=== PATIENT | female | born 1935 | race Caucasian/White ===

== ENCOUNTER 2017-08-10 15:21 | Emergency (ER) | payer OTHER ==
[~2017-08-10] VITALS: Ht 139.7 cm; Wt 77.0 kg
[~2017-08-10 15:21] MED LIST: AMLODIPINE BESY10 MG PO; LEVEMIR FL100 UNITS/ SC; LOSARTAN-HCTZ1 EAC2 PO; METFORMIN HCL1000 MG PO; NAPROSYN500 MG PO; OMEPRAZOLE40 M1 PO; RANITIDINE HCL150 MG PO
[2017-08-10 17:17] LABS: EOSINOPHIL (%) 3.7 % (0-5); EOSINOPHIL COUNT 0.3 K/uL (0-0.3); HEMATOCRIT 34.7 % (36.0-46.0); IMMATURE GRANULOCYTE (%) 0.1 % (0.0-0.7); INSTRUMENT ABS NEUTROPHIL CT 4.4 K/uL; LYMPHOCYTE COUNT 1.5 K/uL (1.0-2.8); MCH 29.4 PG (29.0-34.0); MCHC 32.6 G/DL (30.0-36.0); MCV 90.4 FL (83-99); MEAN PLAT.VOLUME 8.7 uM^3 (9.5-12.4); MONOCYTE (%) 9.6 % (3-12); MONOCYTE COUNT 0.7 K/uL (0-0.8); NEUTROPHIL (%) 64.5 % (45-76); NEUTROPHIL COUNT 4.4 K/uL (1.8-6.4); PLATELET COUNT 192 K/uL (156-360); RBC DIS.WIDTH-CV 13.2 % (11.8-14.6); RBC DIS.WIDTH-SD 43.6 % (39-53); RED BLOOD COUNT 3.84 M/uL (3.80-5.20); WHITE BLOOD COUNT 6.8 K/uL (4.1-10.2)
[2017-08-10 17:27] LABS: CHLORIDE 104 mEq/L (99-109); POTASSIUM 4.1 mEq/L (3.7-5.4); SODIUM 140 mEq/L (136-147)
[2017-08-10 17:28] LABS: MAGNESIUM 1.4 mg/dL (1.3-2.7)
[2017-08-10 17:29] LABS: GLUCOSE 90 mg/dL (70-99)
[2017-08-10 17:30] LABS: ANION GAP 13 MEQ/L (2-14)
[2017-08-10 17:33] LABS: GFR ESTIMATE (CALCULATED) 56 mL/min/
[2017-08-10 17:34] LABS: UREA NITROGEN (BUN) 21 mg/dL (9-23)
[2017-08-10 17:39] LABS: TROP-I INTERPRETATION NEGATIVE; TROPONIN-I < 0.01 ng/mL (0.0-0.30)
[2017-08-10 18:14] LABS: TOTAL BILIRUBIN 0.6 mg/dL (0.0-1.0)
[2017-08-10 18:15] LABS: ALKALINE PHOSPHATASE 66 IU/L (3-129)
[2017-08-10 18:18] LABS: DIRECT BILIRUBIN 0.3 mg/dL (0.0-0.3)
[2017-08-10] MEDS ORDERED: PERCOCET 5/31 TABLET PO (20:14)
[2017-08-10 20:30] VITALS: BP 157/107
== END 2017-08-10 20:30 | disposition home or self-care (01) ==
LOC: EME 15:21
PROVIDERS: Emergency Medicine
DX: R60.9 Edema, unspecified (principal); M25.561 Pain in right knee; C64.9 Malignant neoplasm of unspecified kidney, except renal pelvis; E11.9 Type 2 diabetes mellitus without complications; E78.5 Hyperlipidemia, unspecified; I10 Essential (primary) hypertension; K21.9 Gastro-esophageal reflux disease without esophagitis; Z87.891 Personal history of nicotine dependence; Z79.84 Long term (current) use of oral hypoglycemic drugs; Z79.4 Long term (current) use of insulin
CPT/HCPCS: 71010; 73564; 80048; 80076; 83735; 83880; 84100; 84484; 85025; 99281; 99285

== ENCOUNTER 2018-03-09 20:58 | Emergency (ER) | payer OTHER ==
[~2018-03-09] VITALS: Ht 147.3 cm; Wt 80.0 kg
[~2018-03-09 20:58] MED LIST changes: +LEVEMIR FL100 UNIT/1 SC; -LEVEMIR FL100 UNITS/ SC; -METFORMIN HCL1000 MG PO; +METFORMIN HCL500 MG PO; +PERCOCET 5/31 TABLET PO
[2018-03-09 23:16] VITALS: BP 128/71
[2018-03-10] MEDS ORDERED: OXYMORPHONE HCL10 M1 PO (18:05)
[2018-03-10] MEDS ORDERED: IRBESARTAN300 MG PO (18:05)
[2018-03-10] MEDS ORDERED: PRAVASTATIN SOD80 MG PO (18:05)
[2018-03-10] MEDS ORDERED: ANASTROZOLE1 MG PO (18:05)
[2018-03-10] MEDS ORDERED: HYDROCHLOROTHIA25 MG PO (18:05)
[2018-03-10] MEDS ORDERED: PANTOPRAZOLE SO40 MG PO (18:06)
[2018-03-10] MEDS ORDERED: OXYCODONE HCL5 MG PO (18:07)
[2018-03-10] MEDS ORDERED: KENALOG,ARISTOC80 GM TP (18:07)
[2018-03-10] MEDS ORDERED: ELIQUIS5 MG PO (18:25)
== END 2018-03-09 23:16 | disposition home or self-care (01) ==
LOC: EME 20:58
PROC: 3E0U3BZ Introduction of Anesthetic Agent into Joints, Percutaneous Approach (ICD-10-PCS; principal; 2018-03-09)
DX: S42.292A Other displaced fracture of upper end of left humerus, initial encounter for closed fracture (principal); W01.0XXA Fall on same level from slipping, tripping and stumbling without subsequent striking against object, initial encounter; I10 Essential (primary) hypertension; E11.9 Type 2 diabetes mellitus without complications; Z79.4 Long term (current) use of insulin; Z79.84 Long term (current) use of oral hypoglycemic drugs; E78.5 Hyperlipidemia, unspecified; K21.9 Gastro-esophageal reflux disease without esophagitis; Z87.891 Personal history of nicotine dependence; Z90.11 Acquired absence of right breast and nipple; Z85.3 Personal history of malignant neoplasm of breast; Z90.710 Acquired absence of both cervix and uterus; Z88.0 Allergy status to penicillin
CPT/HCPCS: 73030; 99281; 99284; S0020

== ENCOUNTER 2018-03-10 14:08 | Inpatient (IN) | payer OTHER ==
[~2018-03-10] VITALS: Ht 147.3 cm; Wt 82.2 kg
[2018-03-10 15:14] LABS: BASOPHIL (%) 0.3 % (0-1); EOSINOPHIL (%) 0.3 % (0-5); HEMATOCRIT 31.3 % (36.0-46.0); HEMOGLOBIN 10.3 G/DL (11.9-15.5); IMMATURE GRANULOCYTE (%) 0.3 % (0.0-0.7); LYMPHOCYTE (%) 12.4 % (15-42); LYMPHOCYTE COUNT 1.1 K/uL (1.0-2.8); MCHC 32.9 G/DL (30.0-36.0); MCV 88.2 FL (83-99); MONOCYTE (%) 9.3 % (3-12); MONOCYTE COUNT 0.9 K/uL (0-0.8); NEUTROPHIL (%) 77.4 % (45-76); NEUTROPHIL COUNT 7.1 K/uL (1.8-6.4); PLATELET COUNT 215 K/uL (156-360); RBC DIS.WIDTH-CV 13.4 % (11.8-14.6); RBC DIS.WIDTH-SD 43.7 % (39-53); RED BLOOD COUNT 3.55 M/uL (3.80-5.20); WHITE BLOOD COUNT 9.2 K/uL (4.1-10.2)
[2018-03-10 15:27] LABS: CHLORIDE 101 mEq/L (99-109); POTASSIUM 4.6 mEq/L (3.7-5.4); SODIUM 135 mEq/L (136-147)
[2018-03-10 15:29] LABS: GLUCOSE 176 mg/dL (70-99)
[2018-03-10 15:33] LABS: CREATININE 0.9 mg/dL (0.6-1.3); GFR ESTIMATE (CALCULATED) > 59 mL/min/
[2018-03-10 15:34] LABS: UREA NITROGEN (BUN) 23 mg/dL (9-23)
[2018-03-10 15:58] LABS: APPEARANCE SL.HAZY ((CLEAR)); BILIRUBIN NEGATIVE; BLOOD NEGATIVE; COLOR YELLOW ((YELLOW)); GLUCOSE (STRIP) NEGATIVE; KETONES 5; LEUKOCYTES LARGE; NITRITE NEGATIVE; PROTEIN (STRIP) NEGATIVE; SPECIFIC GRAVITY 1.015 (1.000-1.030); UROBILINOGEN 0.2 MG/DL (0.2-1.0)
[2018-03-10 16:09] LABS: BACTERIA RARE /HPF; EPITHELIAL CELLS 1+ /HPF; MUCUS TRACE /LPF; UCUL ADDED? YES
[2018-03-10] MEDS ORDERED: OXYMORPHONE HCL10 M1 PO (18:05)
[2018-03-10] MEDS ORDERED: HYDROCHLOROTHIA25 MG PO (18:05)
[2018-03-10] MEDS ORDERED: PRAVASTATIN SOD80 MG PO (18:05)
[2018-03-10] MEDS ORDERED: ANASTROZOLE1 MG PO (18:05)
[2018-03-10] MEDS ORDERED: IRBESARTAN300 MG PO (18:05)
[2018-03-10] MEDS ORDERED: PANTOPRAZOLE SO40 MG PO (18:06)
[2018-03-10] MEDS ORDERED: OXYCODONE HCL5 MG PO (18:07)
[2018-03-10] MEDS ORDERED: KENALOG,ARISTOC80 GM TP (18:07)
[2018-03-10] MEDS ORDERED: ELIQUIS5 MG PO (18:25)
[2018-03-10 20:29] VITALS: BP 165/74
[2018-03-10 22:37] VITALS: BP 147/67
[2018-03-11 03:47] VITALS: BP 147/67
[2018-03-11 06:12] LABS: HEMATOCRIT 29.3 % (36.0-46.0); HEMOGLOBIN 9.5 G/DL (11.9-15.5); MCH 28.5 PG (29.0-34.0); MCHC 32.4 G/DL (30.0-36.0); PLATELET COUNT 213 K/uL (156-360); RBC DIS.WIDTH-CV 13.5 % (11.8-14.6); RBC DIS.WIDTH-SD 43.5 % (39-53); RED BLOOD COUNT 3.33 M/uL (3.80-5.20); WHITE BLOOD COUNT 7.9 K/uL (4.1-10.2)
[2018-03-11 06:37] LABS: CHLORIDE 105 MEQ/L (99-109); CREATININE 0.7 MG/DL (0.6-1.3); GFR ESTIMATE (CALCULATED) > 59 mL/min/; POTASSIUM 4.3 MEQ/L (3.7-5.4); SODIUM 139 MEQ/L (136-147); UREA NITROGEN (BUN) 13 mg/dL (9-23)
[2018-03-11 06:48] LABS: GLUCOSE 102 mg/dL (70-99)
[2018-03-11 08:20] VITALS: BP 128/83
[2018-03-11 17:26] VITALS: BP 130/64
[2018-03-12 00:50] VITALS: BP 118/56
[2018-03-12 07:56] VITALS: BP 139/59
[2018-03-12 11:15] VITALS: BP 135/64
[2018-03-12 15:48] VITALS: BP 115/59
[2018-03-12 20:06] VITALS: BP 129/63
[2018-03-12 23:29] VITALS: BP 139/64
[2018-03-13 04:13] VITALS: BP 132/70
[2018-03-13 08:12] VITALS: BP 110/51
[2018-03-13 15:18] VITALS: BP 116/58
[2018-03-13 19:18] LABS: HEMATOCRIT 27.2 % (36.0-46.0); HEMOGLOBIN 8.8 G/DL (11.9-15.5); MCV 89.5 FL (83-99)
[2018-03-13 20:00] VITALS: BP 112/55
[2018-03-13 23:25] VITALS: BP 147/68
[2018-03-14 03:25] VITALS: BP 137/72
[2018-03-14 06:07] LABS: HEMATOCRIT 24.7 % (36.0-46.0); HEMOGLOBIN 8.2 G/DL (11.9-15.5); MCH 29.2 PG (29.0-34.0); MCHC 33.2 G/DL (30.0-36.0); MCV 87.9 FL (83-99); PLATELET COUNT 215 K/uL (156-360); RBC DIS.WIDTH-CV 13.3 % (11.8-14.6); RBC DIS.WIDTH-SD 42.2 % (39-53); RED BLOOD COUNT 2.81 M/uL (3.80-5.20); WHITE BLOOD COUNT 9.9 K/uL (4.1-10.2)
[2018-03-14 06:40] LABS: CHLORIDE 100 MEQ/L (99-109); CREATININE 0.7 MG/DL (0.6-1.3); GFR ESTIMATE (CALCULATED) > 59 mL/min/; GLUCOSE 217 mg/dL (70-99); POTASSIUM 4.2 MEQ/L (3.7-5.4); SODIUM 136 MEQ/L (136-147); UREA NITROGEN (BUN) 17 mg/dL (9-23)
[2018-03-14 08:28] VITALS: BP 143/71
[2018-03-14 17:08] VITALS: BP 119/59
[2018-03-14 20:10] VITALS: BP 129/59
[2018-03-14 23:51] VITALS: BP 140/61
[2018-03-15 06:44] LABS: HEMATOCRIT 24.4 % (36.0-46.0); HEMOGLOBIN 8.1 G/DL (11.9-15.5); MCH 29.3 PG (29.0-34.0); MCHC 33.2 G/DL (30.0-36.0); MCV 88.4 FL (83-99); NRBC (%) 0.2 /100 WBC (0-0); PLATELET COUNT 240 K/uL (156-360); RBC DIS.WIDTH-CV 13.6 % (11.8-14.6); RBC DIS.WIDTH-SD 43.9 % (39-53); RED BLOOD COUNT 2.76 M/uL (3.80-5.20); WHITE BLOOD COUNT 9.4 K/uL (4.1-10.2)
[2018-03-15 07:12] LABS: CHLORIDE 96 MEQ/L (99-109); CREATININE 0.7 MG/DL (0.6-1.3); GFR ESTIMATE (CALCULATED) > 59 mL/min/; GLUCOSE 146 mg/dL (70-99); POTASSIUM 4.4 MEQ/L (3.7-5.4); SODIUM 133 MEQ/L (136-147); UREA NITROGEN (BUN) 19 mg/dL (9-23)
[2018-03-15 08:05] VITALS: BP 125/69
[2018-03-15 09:41] LABS: ALKALINE PHOSPHATASE 45 IU/L (3-129); ALT (GPT) 6 IU/L (3-49); AST (GOT) 14 IU/L (2-34); DIRECT BILIRUBIN 0.2 mg/dL (0.0-0.3); TOTAL BILIRUBIN 0.8 MG/DL (0.0-1.0); TOTAL PROTEIN 5.5 G/DL (6.4-8.3)
[2018-03-15 15:24] VITALS: BP 136/61
[2018-03-16 00:09] VITALS: BP 131/65
[2018-03-16 06:02] LABS: HEMATOCRIT 24.1 % (36.0-46.0); HEMOGLOBIN 7.9 G/DL (11.9-15.5); MCH 29.2 PG (29.0-34.0); MCHC 32.8 G/DL (30.0-36.0); MCV 88.9 FL (83-99); PLATELET COUNT 269 K/uL (156-360); RBC DIS.WIDTH-CV 13.5 % (11.8-14.6); RBC DIS.WIDTH-SD 43.5 % (39-53); RED BLOOD COUNT 2.71 M/uL (3.80-5.20); WHITE BLOOD COUNT 9.1 K/uL (4.1-10.2)
[2018-03-16 06:28] LABS: CHLORIDE 97 MEQ/L (99-109); CREATININE 0.7 MG/DL (0.6-1.3); GFR ESTIMATE (CALCULATED) > 59 mL/min/; GLUCOSE 131 mg/dL (70-99); POTASSIUM 4.4 MEQ/L (3.7-5.4); SODIUM 136 MEQ/L (136-147); UREA NITROGEN (BUN) 22 mg/dL (9-23)
[2018-03-16 08:10] VITALS: BP 154/70
[2018-03-16 12:51] VITALS: BP 111/58
[2018-03-16 17:23] VITALS: BP 138/65
[2018-03-17] VITALS (8 sets, daily range): BP systolic 101–145; BP diastolic 48–67
[2018-03-17 05:09] LABS: HEMATOCRIT 23.4 % (36.0-46.0); HEMOGLOBIN 7.6 G/DL (11.9-15.5)
[2018-03-18 00:06] VITALS: BP 135/64
[2018-03-18 08:02] VITALS: BP 161/74
[2018-03-18 08:17] LABS: MCV 90.6 FL (83-99)
[2018-03-18 09:14] LABS: HEMATOCRIT 28.3 % (36.0-46.0); MCV 89.8 FL (83-99)
[2018-03-18 16:16] VITALS: BP 132/58
[2018-03-19 00:21] VITALS: BP 136/62
[2018-03-19 06:59] LABS: HEMATOCRIT 26.8 % (36.0-46.0); HEMOGLOBIN 8.5 G/DL (11.9-15.5); MCV 90.2 FL (83-99)
[2018-03-19 08:39] VITALS: BP 137/80
[2018-03-19 15:42] VITALS: BP 114/59
[2018-03-19 22:51] LABS: GLUCOSE 379 mg/dL (70-99)
[2018-03-19 23:27] VITALS: BP 127/60
[2018-03-20 06:25] LABS: BASOPHIL (%) 0.8 % (0-1); BASOPHIL COUNT 0.1 K/uL (0-0.1); EOSINOPHIL (%) 2.7 % (0-5); EOSINOPHIL COUNT 0.2 K/uL (0-0.3); HEMATOCRIT 26.6 % (36.0-46.0); HEMOGLOBIN 8.6 G/DL (11.9-15.5); IMMATURE GRANULOCYTE (%) 0.6 % (0.0-0.7); LYMPHOCYTE (%) 21.8 % (15-42); LYMPHOCYTE COUNT 1.4 K/uL (1.0-2.8); MCH 28.8 PG (29.0-34.0); MCHC 32.3 G/DL (30.0-36.0); MONOCYTE (%) 11.4 % (3-12); MONOCYTE COUNT 0.7 K/uL (0-0.8); NEUTROPHIL (%) 62.7 % (45-76); PLATELET COUNT 305 K/uL (156-360); RBC DIS.WIDTH-CV 13.3 % (11.8-14.6); RBC DIS.WIDTH-SD 43.7 % (39-53); RED BLOOD COUNT 2.99 M/uL (3.80-5.20); WHITE BLOOD COUNT 6.3 K/uL (4.1-10.2)
[2018-03-20 07:01] LABS: CHLORIDE 93 MEQ/L (99-109); CREATININE 0.8 MG/DL (0.6-1.3); GFR ESTIMATE (CALCULATED) > 59 mL/min/; POTASSIUM 4.8 MEQ/L (3.7-5.4); SODIUM 133 MEQ/L (136-147); UREA NITROGEN (BUN) 27 mg/dL (9-23)
[2018-03-20 07:04] LABS: GLUCOSE 174 mg/dL (70-99)
[2018-03-20 08:05] VITALS: BP 117/57
[2018-03-20] MEDS ORDERED: POLYETHYLENE GL17 GM PO (10:37)
[2018-03-20] MEDS ORDERED: MYLICON,MYLANTA80 MG PO (10:37)
[2018-03-20] MEDS ORDERED: MIRTAZAPINE15 MG PO (10:37)
[2018-03-20] MEDS ORDERED: DOCUSATE SODIU1 EACH PO (10:38)
[2018-03-20] MEDS ORDERED: MORPHINE SULFAT15 MG PO (10:38)
[2018-03-20] MEDS ORDERED: Tylenol Extra Streng PO (10:38)
[2018-03-20 16:56] VITALS: BP 144/65
== END 2018-03-20 17:13 | DRG 483 ==
LOC: EME → EDBD 14:08 → 3EAST 18:33 → EDOF 18:33 → ENRESERV 18:36 → 4SOUTH 20:16 → ENRESERV 20:44 → 3EAST 22:14
PROVIDERS: Emergency Medicine; Hospitalist; Internal Medicine; Orthopaedic Surgery
PROC: 0RRK00Z Replacement of Left Shoulder Joint with Reverse Ball and Socket Synthetic Substitute, Open Approach (ICD-10-PCS; principal; 2018-03-10)
PROC: 30233N1 Transfusion of Nonautologous Red Blood Cells into Peripheral Vein, Percutaneous Approach (ICD-10-PCS; 2018-03-17)
DX: S42.24 4-part fracture of surgical neck of humerus (principal); R11.2 Nausea with vomiting, unspecified; E11.9 Type 2 diabetes mellitus without complications; I10 Essential (primary) hypertension; C64.2 Malignant neoplasm of left kidney, except renal pelvis; M25.551 Pain in right hip; E66.9 Obesity, unspecified; R09.02 Hypoxemia; J98.11 Atelectasis; E11.51 Type 2 diabetes mellitus with diabetic peripheral angiopathy without gangrene; M25.562 Pain in left knee; S42.242A 4-part fracture of surgical neck of left humerus, initial encounter for closed fracture; I82.431 Acute embolism and thrombosis of right popliteal vein; W18.30XA Fall on same level, unspecified, initial encounter; F43.23 Adjustment disorder with mixed anxiety and depressed mood; T40.2X5A Adverse effect of other opioids, initial encounter; K59.03 Drug induced constipation; M87.9 Osteonecrosis, unspecified; R14.0 Abdominal distension (gaseous); L30.9 Dermatitis, unspecified; G89.29 Other chronic pain; M48.061 Spinal stenosis, lumbar region without neurogenic claudication; M19.90 Unspecified osteoarthritis, unspecified site; Z86.718 Personal history of other venous thrombosis and embolism; Z68.37 Body mass index [BMI] 37.0-37.9, adult; M25.78 Osteophyte, vertebrae; Z79.84 Long term (current) use of oral hypoglycemic drugs; Z90.10 Acquired absence of unspecified breast and nipple; Z88.0 Allergy status to penicillin; Z79.899 Other long term (current) drug therapy; Z85.3 Personal history of malignant neoplasm of breast; Z90.710 Acquired absence of both cervix and uterus; Z79.01 Long term (current) use of anticoagulants
CPT/HCPCS: 71045; 72131; 73020; 73030; 73200; 73502; 73552; 73700; 74018; 80048; 80076; 81003; 82948; 84999; 85014; 85018; 85025; 85027; 85651; 86140; 86850; 86870; 86900; 86901; 86905; 86920; 87040; 87086; 93005; 93970; 94799; 97530 GO; 97530 GP; 99281; 99284; 99285; C1713; C1776; G0378; J0131; J0690; J0744; J1170; J1644; J1815; J2405; J2795; J3010; J3370; J7030; P9016; S0020

== ENCOUNTER 2018-06-14 09:50 | Inpatient (IN) | payer OTHER ==
[~2018-06-14] VITALS: Ht 147.3 cm; Wt 70.8 kg
[~2018-06-14 09:50] MED LIST changes: +ANASTROZOLE1 MG PO; +DOCUSATE SODIU1 EACH PO; +ELIQUIS5 MG PO; +HYDROCHLOROTHIA25 MG PO; +IRBESARTAN300 MG PO; +KENALOG,ARISTOC80 GM TP; +MIRTAZAPINE15 MG PO; +MORPHINE SULFAT15 MG PO; +MYLICON,MYLANTA80 MG PO; +OXYCODONE HCL5 MG PO; +OXYMORPHONE HCL10 M1 PO; +PANTOPRAZOLE SO40 MG PO; +POLYETHYLENE GL17 GM PO; +PRAVASTATIN SOD80 MG PO; +Tylenol Extra Streng PO
[2018-06-14 11:33] LABS: BASOPHIL (%) 0.2 % (0-1); BASOPHIL COUNT 0.1 K/uL (0-0.1); EOSINOPHIL (%) 0 % (0-5); HEMATOCRIT 35.9 % (36.0-46.0); IMMATURE GRANULOCYTE (%) 0.9 % (0.0-0.7); LYMPHOCYTE (%) 3.4 % (15-42); LYMPHOCYTE COUNT 0.8 K/uL (1.0-2.8); MCH 28.4 PG (29.0-34.0); MCHC 33.4 G/DL (30.0-36.0); MCV 85.1 FL (83-99); MONOCYTE (%) 6.2 % (3-12); MONOCYTE COUNT 1.5 K/uL (0-0.8); NEUTROPHIL (%) 89.3 % (45-76); NEUTROPHIL COUNT 21.7 K/uL (1.8-6.4); PLATELET COUNT 234 K/uL (156-360); RBC DIS.WIDTH-CV 14.4 % (11.8-14.6); RED BLOOD COUNT 4.22 M/uL (3.80-5.20); WHITE BLOOD COUNT 24.3 K/uL (4.1-10.2)
[2018-06-14 11:50] LABS: ALBUMIN 4.1 g/dL (3.2-4.8); CHLORIDE 102 mEq/L (99-109); POTASSIUM 4.1 mEq/L (3.7-5.4); SODIUM 137 mEq/L (136-147)
[2018-06-14 11:52] LABS: GLUCOSE 290 mg/dL (70-99)
[2018-06-14 11:53] LABS: TOTAL PROTEIN 7.9 g/dL (6.4-8.3)
[2018-06-14 11:54] LABS: TOTAL BILIRUBIN 0.7 mg/dL (0.0-1.0)
[2018-06-14 11:56] LABS: ALKALINE PHOSPHATASE 81 IU/L (3-129); CREATININE 1.2 mg/dL (0.6-1.3); GFR ESTIMATE (CALCULATED) 45 mL/min/
[2018-06-14 11:57] LABS: UREA NITROGEN (BUN) 38 mg/dL (9-23)
[2018-06-14 11:58] LABS: AST (GOT) 14 IU/L (2-34); DIRECT BILIRUBIN 0.3 mg/dL (0.0-0.3); TROP-I INTERPRETATION NEGATIVE; TROPONIN-I < 0.01 ng/mL (0.0-0.30)
[2018-06-14 11:59] LABS: ALT (GPT) 10 IU/L (3-49); LIPASE 14 U/L (1.0-51.0)
[2018-06-14 13:25] LABS: APPEARANCE SL.HAZY ((CLEAR)); BILIRUBIN NEGATIVE; BLOOD NEGATIVE; COLOR YELLOW ((YELLOW)); GLUCOSE (STRIP) 150; KETONES 20; LEUKOCYTES LARGE; NITRITE NEGATIVE; PROTEIN (STRIP) 30; UROBILINOGEN 0.2 MG/DL (0.2-1.0)
[2018-06-14 13:32] LABS: BACTERIA RARE /HPF; EPITHELIAL CELLS 2+ /HPF; MUCUS TRACE /LPF; UCUL ADDED? YES
[2018-06-14] MEDS ORDERED: TYLENOL EXTRA500 MG PO (15:00)
[2018-06-14] MEDS ORDERED: NAPROSYN500 MG PO (15:00)
[2018-06-14] MEDS ORDERED: DIAZEPAM2 MG PO (15:00)
[2018-06-14 15:15] LABS: ERTH.SED.RATE 56 MM/HR (0-30)
[2018-06-14 16:15] VITALS: BP 175/81
[2018-06-14 19:14] VITALS: BP 145/74
[2018-06-15] VITALS (7 sets, daily range): BP systolic 140–178; BP diastolic 69–84
[2018-06-15 06:06] LABS: HEMATOCRIT 30.8 % (36.0-46.0); HEMOGLOBIN 10.1 G/DL (11.9-15.5); MCHC 32.8 G/DL (30.0-36.0); MCV 85.3 FL (83-99); PLATELET COUNT 184 K/uL (156-360); RBC DIS.WIDTH-CV 14.7 % (11.8-14.6); RBC DIS.WIDTH-SD 45.5 % (39-53); RED BLOOD COUNT 3.61 M/uL (3.80-5.20)
[2018-06-15 06:38] LABS: ALBUMIN 3.1 G/DL (3.2-4.8); ALKALINE PHOSPHATASE 63 IU/L (3-129); ALT (GPT) 6 IU/L (3-49); AST (GOT) 9 IU/L (2-34); CHLORIDE 107 MEQ/L (99-109); CREATININE 0.8 MG/DL (0.6-1.3); GFR ESTIMATE (CALCULATED) > 59 mL/min/; GLUCOSE 169 mg/dL (70-99); POTASSIUM 3.5 MEQ/L (3.7-5.4); SODIUM 141 MEQ/L (136-147); TOTAL BILIRUBIN 0.4 MG/DL (0.0-1.0); TOTAL PROTEIN 5.9 G/DL (6.4-8.3); UREA NITROGEN (BUN) 25 mg/dL (9-23)
[2018-06-16 03:46] VITALS: BP 189/88
[2018-06-16 03:59] VITALS: BP 160/78
[2018-06-16 07:24] LABS: BASOPHIL (%) 0.2 % (0-1); EOSINOPHIL (%) 0.5 % (0-5); EOSINOPHIL COUNT 0.1 K/uL (0-0.3); HEMATOCRIT 30.9 % (36.0-46.0); IMMATURE GRANULOCYTE (%) 0.8 % (0.0-0.7); LYMPHOCYTE (%) 7.9 % (15-42); LYMPHOCYTE COUNT 1.1 K/uL (1.0-2.8); MCH 27.8 PG (29.0-34.0); MCHC 32.4 G/DL (30.0-36.0); MCV 85.8 FL (83-99); MONOCYTE (%) 3.1 % (3-12); MONOCYTE COUNT 0.4 K/uL (0-0.8); NEUTROPHIL (%) 87.5 % (45-76); NEUTROPHIL COUNT 12.5 K/uL (1.8-6.4); PLATELET COUNT 211 K/uL (156-360); RBC DIS.WIDTH-CV 14.6 % (11.8-14.6); RBC DIS.WIDTH-SD 45.7 % (39-53); WHITE BLOOD COUNT 14.3 K/uL (4.1-10.2)
[2018-06-16 07:44] LABS: C-REACTIVE PROTEIN 293.7 MG/L (0-10); CHLORIDE 108 MEQ/L (99-109); CREATININE 0.6 MG/DL (0.6-1.3); GFR ESTIMATE (CALCULATED) > 59 mL/min/; GLUCOSE 158 mg/dL (70-99); POTASSIUM 3.6 MEQ/L (3.7-5.4); SODIUM 139 MEQ/L (136-147); UREA NITROGEN (BUN) 15 mg/dL (9-23)
[2018-06-16 07:56] VITALS: BP 180/88
[2018-06-16 11:42] VITALS: BP 137/84
[2018-06-16 20:14] VITALS: BP 123/78
[2018-06-16 23:44] VITALS: BP 149/72
[2018-06-17 04:47] VITALS: BP 184/85
[2018-06-17 05:54] LABS: BASOPHIL (%) 0.2 % (0-1); EOSINOPHIL (%) 2.1 % (0-5); EOSINOPHIL COUNT 0.3 K/uL (0-0.3); HEMATOCRIT 31.8 % (36.0-46.0); HEMOGLOBIN 10.5 G/DL (11.9-15.5); IMMATURE GRANULOCYTE (%) 0.3 % (0.0-0.7); LYMPHOCYTE (%) 10.6 % (15-42); LYMPHOCYTE COUNT 1.3 K/uL (1.0-2.8); MCH 27.9 PG (29.0-34.0); MCV 84.6 FL (83-99); MONOCYTE (%) 5.4 % (3-12); MONOCYTE COUNT 0.7 K/uL (0-0.8); NEUTROPHIL (%) 81.4 % (45-76); NEUTROPHIL COUNT 9.9 K/uL (1.8-6.4); PLATELET COUNT 240 K/uL (156-360); RBC DIS.WIDTH-CV 14.3 % (11.8-14.6); RBC DIS.WIDTH-SD 44.5 % (39-53); RED BLOOD COUNT 3.76 M/uL (3.80-5.20); WHITE BLOOD COUNT 12.1 K/uL (4.1-10.2)
[2018-06-17 06:19] LABS: CHLORIDE 106 MEQ/L (99-109); CREATININE 0.6 MG/DL (0.6-1.3); GFR ESTIMATE (CALCULATED) > 59 mL/min/; GLUCOSE 201 mg/dL (70-99); POTASSIUM 3.1 MEQ/L (3.7-5.4); SODIUM 141 MEQ/L (136-147); UREA NITROGEN (BUN) 10 mg/dL (9-23)
[2018-06-17 06:56] VITALS: BP 164/75
[2018-06-17 15:38] VITALS: BP 155/78
[2018-06-18 00:57] VITALS: BP 133/63
[2018-06-18 05:47] LABS: BASOPHIL (%) 0.5 % (0-1); EOSINOPHIL (%) 5.5 % (0-5); EOSINOPHIL COUNT 0.5 K/uL (0-0.3); HEMATOCRIT 29.8 % (36.0-46.0); HEMOGLOBIN 9.8 G/DL (11.9-15.5); IMMATURE GRANULOCYTE (%) 0.3 % (0.0-0.7); LYMPHOCYTE COUNT 1.2 K/uL (1.0-2.8); MCH 28.2 PG (29.0-34.0); MCHC 32.9 G/DL (30.0-36.0); MCV 85.6 FL (83-99); MONOCYTE (%) 7.9 % (3-12); MONOCYTE COUNT 0.7 K/uL (0-0.8); NEUTROPHIL (%) 71.8 % (45-76); NEUTROPHIL COUNT 6.4 K/uL (1.8-6.4); PLATELET COUNT 236 K/uL (156-360); RBC DIS.WIDTH-CV 14.4 % (11.8-14.6); RBC DIS.WIDTH-SD 44.9 % (39-53); RED BLOOD COUNT 3.48 M/uL (3.80-5.20); WHITE BLOOD COUNT 8.9 K/uL (4.1-10.2)
[2018-06-18 06:06] LABS: CHLORIDE 108 MEQ/L (99-109); CREATININE 0.6 MG/DL (0.6-1.3); GFR ESTIMATE (CALCULATED) > 59 mL/min/; GLUCOSE 164 mg/dL (70-99); POTASSIUM 3.4 MEQ/L (3.7-5.4); SODIUM 142 MEQ/L (136-147); UREA NITROGEN (BUN) 9 mg/dL (9-23)
[2018-06-18 07:45] VITALS: BP 159/77
[2018-06-18 08:41] LABS: MAGNESIUM 1.3 mg/dl (1.3-2.7)
[2018-06-18 15:30] VITALS: BP 175/85
[2018-06-18 22:54] VITALS: BP 169/80
[2018-06-18 23:42] VITALS: BP 137/63
[2018-06-19 08:16] VITALS: BP 133/79
[2018-06-19 08:23] LABS: HEMOGLOBIN 9.2 G/DL (11.9-15.5); MCH 28.8 PG (29.0-34.0); MCHC 34.1 G/DL (30.0-36.0); MCV 84.4 FL (83-99); NRBC (%) 0.4 /100 WBC (0-0); PLATELET COUNT 226 K/uL (156-360); RBC DIS.WIDTH-CV 14.3 % (11.8-14.6); RBC DIS.WIDTH-SD 44.1 % (39-53); WHITE BLOOD COUNT 7.7 K/uL (4.1-10.2)
[2018-06-19 08:48] LABS: CHLORIDE 107 mEq/L (99-109); POTASSIUM 3.4 mEq/L (3.7-5.4); SODIUM 137 mEq/L (136-147)
[2018-06-19 08:50] LABS: GLUCOSE 170 mg/dL (70-99)
[2018-06-19 08:54] LABS: CREATININE 0.7 mg/dL (0.6-1.3); GFR ESTIMATE (CALCULATED) > 59 mL/min/
[2018-06-19 08:55] LABS: UREA NITROGEN (BUN) 5 mg/dL (9-23)
[2018-06-19 16:06] VITALS: BP 129/71
[2018-06-20 00:37] VITALS: BP 169/81
[2018-06-20 07:07] LABS: CHLORIDE 102 MEQ/L (99-109); CREATININE 0.6 MG/DL (0.6-1.3); GFR ESTIMATE (CALCULATED) > 59 mL/min/; GLUCOSE 206 mg/dL (70-99); POTASSIUM 3.5 MEQ/L (3.7-5.4); SODIUM 139 MEQ/L (136-147); UREA NITROGEN (BUN) 6 mg/dL (9-23)
[2018-06-20 07:25] VITALS: BP 162/82
[2018-06-20 07:55] LABS: HEMOGLOBIN 10.8 G/DL (11.9-15.5); MCH 28.3 PG (29.0-34.0); MCHC 33.8 G/DL (30.0-36.0); MCV 83.8 FL (83-99); PLATELET COUNT 274 K/uL (156-360); RBC DIS.WIDTH-CV 14.3 % (11.8-14.6); RBC DIS.WIDTH-SD 43.3 % (39-53); RED BLOOD COUNT 3.82 M/uL (3.80-5.20); WHITE BLOOD COUNT 8.5 K/uL (4.1-10.2)
[2018-06-20 15:16] VITALS: BP 142/74
[2018-06-21 00:13] VITALS: BP 165/79
[2018-06-21 06:51] VITALS: BP 166/74
[2018-06-21 07:40] LABS: INTER. NORMALIZED RATIO 1.5
[2018-06-21 07:43] LABS: PTT 30.1 SEC (25-37)
[2018-06-21 11:00] VITALS: BP 144/80
[2018-06-21 15:41] LABS: APPEARANCE TURBID; MONONUCLEAR WBC'S 16 %; POLYNUCLEAR WBC'S 84 % (0-25); RED CELL COUNT 190000 /MM^3 (0-1); SYNOVIAL FLUID EOSINOPHILS 0 % (0-25); WHITE CELL COUNT 174200 /MM^3 (0-200.0)
[2018-06-21 16:01] VITALS: BP 140/78
[2018-06-21 23:42] VITALS: BP 157/78
[2018-06-22 07:28] VITALS: BP 135/68
[2018-06-22 14:03] LABS: CRYSTALS NO CRYSTALS SEEN
[2018-06-22 15:05] VITALS: BP 142/63
[2018-06-23 00:39] VITALS: BP 152/72
[2018-06-23 06:04] LABS: HEMATOCRIT 29.2 % (36.0-46.0); HEMOGLOBIN 9.3 G/DL (11.9-15.5); MCH 27.6 PG (29.0-34.0); MCHC 31.8 G/DL (30.0-36.0); MCV 86.6 FL (83-99); PLATELET COUNT 337 K/uL (156-360); RBC DIS.WIDTH-CV 14.4 % (11.8-14.6); RBC DIS.WIDTH-SD 45.6 % (39-53); RED BLOOD COUNT 3.37 M/uL (3.80-5.20); WHITE BLOOD COUNT 6.2 K/uL (4.1-10.2)
[2018-06-23 06:41] LABS: CHLORIDE 106 MEQ/L (99-109); CREATININE 0.5 MG/DL (0.6-1.3); GFR ESTIMATE (CALCULATED) > 59 mL/min/; GLUCOSE 170 mg/dL (70-99); POTASSIUM 3.3 MEQ/L (3.7-5.4); SODIUM 143 MEQ/L (136-147); UREA NITROGEN (BUN) 8 mg/dL (9-23)
[2018-06-23 07:43] VITALS: BP 135/62
[2018-06-23 09:18] LABS: MAGNESIUM 1.3 mg/dl (1.3-2.7)
[2018-06-23 15:34] VITALS: BP 147/71
[2018-06-23 23:26] VITALS: BP 149/71
[2018-06-24 07:32] VITALS: BP 183/80
[2018-06-24 15:35] VITALS: BP 146/68
[2018-06-24 23:12] VITALS: BP 150/85
[2018-06-25 07:08] VITALS: BP 138/84
[2018-06-25 10:18] LABS: HEMOGLOBIN A1c (GLYCOHEMOGLOB) 7.9 % (Below 5.7)
[2018-06-25 12:12] LABS: HEMATOCRIT 31.2 % (36.0-46.0); MCH 27.3 PG (29.0-34.0); MCHC 32.1 G/DL (30.0-36.0); MCV 85.2 FL (83-99); PLATELET COUNT 364 K/uL (156-360); RBC DIS.WIDTH-CV 14.7 % (11.8-14.6); RBC DIS.WIDTH-SD 45.6 % (39-53); RED BLOOD COUNT 3.66 M/uL (3.80-5.20); WHITE BLOOD COUNT 6.6 K/uL (4.1-10.2)
[2018-06-25 12:45] LABS: CHLORIDE 103 MEQ/L (99-109); CREATININE 0.5 MG/DL (0.6-1.3); GFR ESTIMATE (CALCULATED) > 59 mL/min/; GLUCOSE 197 mg/dL (70-99); POTASSIUM 3.9 MEQ/L (3.7-5.4); SODIUM 140 MEQ/L (136-147); UREA NITROGEN (BUN) 7 mg/dL (9-23)
[2018-06-25 15:06] VITALS: BP 131/62
[2018-06-26 00:15] VITALS: BP 139/70
[2018-06-26 06:57] VITALS: BP 148/71
[2018-06-26 17:44] VITALS: BP 144/85
[2018-06-26 23:50] VITALS: BP 170/78
[2018-06-27 05:50] LABS: HEMATOCRIT 27.3 % (36.0-46.0); HEMOGLOBIN 8.6 G/DL (11.9-15.5); MCH 27.4 PG (29.0-34.0); MCHC 31.5 G/DL (30.0-36.0); MCV 86.9 FL (83-99); PLATELET COUNT 375 K/uL (156-360); RBC DIS.WIDTH-SD 47.8 % (39-53); RED BLOOD COUNT 3.14 M/uL (3.80-5.20); WHITE BLOOD COUNT 6.6 K/uL (4.1-10.2)
[2018-06-27 06:13] LABS: CHLORIDE 107 MEQ/L (99-109); CREATININE 0.5 MG/DL (0.6-1.3); GFR ESTIMATE (CALCULATED) > 59 mL/min/; GLUCOSE 149 mg/dL (70-99); POTASSIUM 3.8 MEQ/L (3.7-5.4); SODIUM 141 MEQ/L (136-147); UREA NITROGEN (BUN) 7 mg/dL (9-23)
[2018-06-27 07:08] VITALS: BP 111/72
[2018-06-27 10:26] LABS: FERRITIN 145 NG/ML (10-291)
[2018-06-27 10:28] LABS: IRON 27 MCG/DL (35-150); TRANSFERRIN (TIBC) 150.6 mg/dL (215-380); TRANSFERRIN SATUR. 18 % (20-55)
[2018-06-27 11:30] LABS: FOLIC ACID (FOLATE) 10.9 NG/ML (5.0-22.0)
[2018-06-27 15:26] LABS: STOOL OCCULT BLD 1ST SPECIMEN NEGATIVE
[2018-06-27 15:42] VITALS: BP 109/57
[2018-06-27 19:44] LABS: HEMATOCRIT 27.8 % (36.0-46.0); HEMOGLOBIN 8.7 G/DL (11.9-15.5); MCV 87.4 FL (83-99)
[2018-06-27 23:33] VITALS: BP 118/60
[2018-06-28 06:12] LABS: HEMATOCRIT 28.5 % (36.0-46.0); MCH 27.7 PG (29.0-34.0); MCHC 31.6 G/DL (30.0-36.0); MCV 87.7 FL (83-99); PLATELET COUNT 393 K/uL (156-360); RBC DIS.WIDTH-CV 14.8 % (11.8-14.6); RBC DIS.WIDTH-SD 47.6 % (39-53); RED BLOOD COUNT 3.25 M/uL (3.80-5.20); WHITE BLOOD COUNT 6.9 K/uL (4.1-10.2)
[2018-06-28 06:28] LABS: CHLORIDE 107 MEQ/L (99-109); CREATININE 0.4 MG/DL (0.6-1.3); GFR ESTIMATE (CALCULATED) > 59 mL/min/; GLUCOSE 158 mg/dL (70-99); SODIUM 141 MEQ/L (136-147); UREA NITROGEN (BUN) 6 mg/dL (9-23)
[2018-06-28 07:05] VITALS: BP 98/64
[2018-06-28 11:43] VITALS: BP 98/64
[2018-06-28 13:08] LABS: HEMATOCRIT 27.6 % (36.0-46.0); HEMOGLOBIN 8.7 G/DL (11.9-15.5); MCV 88.2 FL (83-99)
[2018-06-28] MEDS ORDERED: LORAZEPAM2 MG/1 M1 IV (14:19)
[2018-06-28] MEDS ORDERED: ACETAMINOPHEN650 M4 PR (14:19)
[2018-06-28] MEDS ORDERED: morphine Sulfate SC (14:19)
[2018-06-28] MEDS ORDERED: morphine Sulfate IV (14:19)
== END 2018-06-28 18:11 | disposition hospice, home (50) | DRG 559 ==
LOC: EME 09:50 → 5SOUTH 14:12 → EDOF 14:12 → ENRESERV 14:13 → 5SOUTH 15:42
PROVIDERS: Emergency Medicine; Hospitalist; Internal Medicine; Internal Medicine Infectious Disease; Nurse Practitioner Adult Health; Physician Assistant Surgical; Radiology Diagnostic Radiology
PROC: 0R9K3ZX Drainage of Left Shoulder Joint, Percutaneous Approach, Diagnostic (ICD-10-PCS; principal; 2018-06-21)
DX: T84.59XA Infection and inflammatory reaction due to other internal joint prosthesis, initial encounter (principal); A41.9 Sepsis, unspecified organism; G93.41 Metabolic encephalopathy; N39.0 Urinary tract infection, site not specified; M48.54XA Collapsed vertebra, not elsewhere classified, thoracic region, initial encounter for fracture; F05 Delirium due to known physiological condition; C64.2 Malignant neoplasm of left kidney, except renal pelvis; Y83.2 Surgical operation with anastomosis, bypass or graft as the cause of abnormal reaction of the patient, or of later complication, without mention of misadventure at the time of the procedure; J98.11 Atelectasis; Z66 Do not resuscitate; Z51.5 Encounter for palliative care; I82.511 Chronic embolism and thrombosis of right femoral vein; L02.414 Cutaneous abscess of left upper limb; B95.61 Methicillin susceptible Staphylococcus aureus infection as the cause of diseases classified elsewhere; I82.5Z1 Chronic embolism and thrombosis of unspecified deep veins of right distal lower extremity; G30.9 Alzheimer's disease, unspecified; F02.80 Dementia in other diseases classified elsewhere, unspecified severity, without behavioral disturbance, psychotic disturbance, mood disturbance, and anxiety; D50.9 Iron deficiency anemia, unspecified; E11.65 Type 2 diabetes mellitus with hyperglycemia; E87.6 Hypokalemia; G89.29 Other chronic pain; I10 Essential (primary) hypertension; K21.9 Gastro-esophageal reflux disease without esophagitis; Z53.20 Procedure and treatment not carried out because of patient's decision for unspecified reasons; Z96.612 Presence of left artificial shoulder joint; R32 Unspecified urinary incontinence; L30.9 Dermatitis, unspecified; E11.51 Type 2 diabetes mellitus with diabetic peripheral angiopathy without gangrene; F41.9 Anxiety disorder, unspecified; M54.9 Dorsalgia, unspecified; R54 Age-related physical debility; E66.01 Morbid (severe) obesity due to excess calories; N28.89 Other specified disorders of kidney and ureter; Z85.3 Personal history of malignant neoplasm of breast; Y92.89 Other specified places as the place of occurrence of the external cause; Z88.0 Allergy status to penicillin; Z88.5 Allergy status to narcotic agent; Z68.32 Body mass index [BMI] 32.0-32.9, adult; Z79.01 Long term (current) use of anticoagulants; Z79.811 Long term (current) use of aromatase inhibitors; Z79.4 Long term (current) use of insulin; Z90.12 Acquired absence of left breast and nipple; Z90.710 Acquired absence of both cervix and uterus; Z91.19 Patient's noncompliance with other medical treatment and regimen; Z83.3 Family history of diabetes mellitus; Z80.8 Family history of malignant neoplasm of other organs or systems
CPT/HCPCS: 70450; 71046; 71275; 73030; 73200; 74018; 74176; 75989; 76937; 80048; 80053; 80076; 81003; 82272; 82607; 82728; 82746; 82948; 83036; 83540; 83605; 83690; 83735; 83880; 84466; 84484; 85014; 85018; 85025; 85027; 85379; 85610; 85651; 85730; 86140; 86850; 86860; 86870; 86880; 86900; 86901; 86905; 86920; 87040; 87070; 87075; 87077; 87086; 87147; 87186; 87205; 87801; 89051; 89060; 92526 GN; 92610 GN; 93306; 93970; 93971; 94799; 97530 GO; 97530 GP; 99281; 99285; J0690; J0696; J1815; J1885; J2270; J2405; J3475; J3480; J7030; J7050; S0028